=== PATIENT | male | born 1955 | race Caucasian/White ===

== ENCOUNTER 2020-09-26 06:33 | Day surgery (SDC) | payer OTHER, SELFPAY ==
[~2020-09-26] VITALS: Ht 152.4 cm; Wt 87.1 kg
[2020-09-26] MEDS ORDERED: LIDOCAINE 2% 100 MG/5 ML UJET TP ONE (07:53)
[2020-09-26] MEDS ORDERED: fentaNYL citrate 0.05 MG/ML VIAL ONE (07:53)
[2020-09-26] MEDS ORDERED: MIDAZOLAM 5 MG/5 ML VIAL ONE (07:53)
[2020-09-26] MEDS ORDERED: diphenhydrAMINE 50 MG/ML VIAL ONE (07:53)
[2020-09-26] MEDS ORDERED: MIDAZOLAM 2 MG/2 ML VIAL IVP ONE (09:15)
[2020-09-26] MEDS ORDERED: fentaNYL citrate 0.05 MG/ML VIAL IVP ONE (09:15)
== END 2020-09-26 10:02 | disposition home or self-care (01) ==
LOC: MDS 06:33 → MMU 06:34 → MDS 10:02
PROVIDERS: ATTEND Surgery
DX: Z12.11 Encounter for screening for malignant neoplasm of colon (principal); D12.8 Benign neoplasm of rectum; K57.30 Diverticulosis of large intestine without perforation or abscess without bleeding; K43.2 Incisional hernia without obstruction or gangrene; Z79.899 Other long term (current) drug therapy; Z20.828 Contact with and (suspected) exposure to other viral communicable diseases
CPT/HCPCS: 45380; 71045; 88305; J2250; J3010; U0003; J1200